=== PATIENT | male | born 1955 | race Two or more races ===

== ENCOUNTER 2020-04-13 12:04 | Emergency (ER) | payer OTHER, MEDICAID ==
[~2020-04-13] VITALS: Ht 170.2 cm; Wt 70.3 kg
[~2020-04-13 12:04] MED LIST: CLOP75TA2 PO; INSU100V11 SQ; LIP40 PO; SITA1TBM4 PO
[2020-04-13 12:08] VITALS: BP_SYST 156
--- NOTE | 2020-04-13 12:08 | NUR ---
Patient to ER bed 6 to gown for evaluation. Side rails up.
--- NOTE | 2020-04-13 12:10 | NUR ---
Patient presented to ER C/O right arm pain. Patient A&Ox4, ambulatory to ER, right forearm skin taught, pain 7/10, greenish-purple discoloration to inner forearm. Patient states he had angiogram procedure at [facility] 04/02/2020.
--- NOTE | 2020-04-13 12:11 | NUR ---
ER Dr. Mcguire at bedside examining patient.
[2020-04-13 13:55] VITALS: BP_SYST 151
--- NOTE | 2020-04-13 13:55 | NUR ---
Patient given written and verbal discharge instructions and verbalizes understanding. ER MD discussed with patient the results and treatment provided. Patient in stable condition. ID arm band removed. No Rx given. Patient educated on pain management and to follow up with PMD. Pain Scale 2/10 tolerable for patient. Opportunity for questions provided and answered. Medication side effect fact sheet provided.
== END 2020-04-13 13:55 | disposition home or self-care (01) ==
LOC: SED 12:04
DX: I80.8 Phlebitis and thrombophlebitis of other sites (principal); I10 Essential (primary) hypertension; E11.9 Type 2 diabetes mellitus without complications; Z79.899 Other long term (current) drug therapy; Z79.4 Long term (current) use of insulin
CPT/HCPCS: 93971; 99284